=== PATIENT | female | born 1980 | race Caucasian/White ===

== ENCOUNTER 2017-11-12 07:17 | Day surgery (SDC) | payer BC ==
[~2017-11-12 07:17] MED LIST: ACETAMINOPHEN 1,000 MG/100 ML BTL IV ONE; CEFAZOLIN 2 Gram 2 GM/50 ML BAG IVPB ONE; FAMOTIDINE 20MG TABLET PO ONE; MECLIZINE 25 MG TABLET PO ONE; METOCLOPRAMIDE 10 MG TABLET PO ONE
[2017-11-12] MEDS ORDERED: HYDROMORPHONE HCL 2 MG/ML VIAL IV ONE ×2 (07:18)
[2017-11-12] MEDS ORDERED: ROCURONIUM BROMIDE 50MG/5ML VIAL IV ONE (07:18)
[2017-11-12] MEDS ORDERED: LIDOCAINE 1% W/EPI 1:200,000 MPF 30ML SQ ONE (07:18)
[2017-11-12] MEDS ORDERED: LIDOCAINE 2% MDV (20MG/ML) 20ML VIAL IV ONE (07:18)
[2017-11-12] MEDS ORDERED: MIDAZOLAM HCL 2MG/2ML VIAL IV ONE (07:18)
[2017-11-12] MEDS ORDERED: SCOPOLAMINE 1 PATCH TDSY TD ONE (07:18)
[2017-11-12] MEDS ORDERED: ONDANSETRON HCL IV 4 MG/2 ML VIAL IVP ONE (07:18)
[2017-11-12] MEDS ORDERED: PROPOFOL 10 MG/ML VIAL IV ONE (07:18)
[2017-11-12] MEDS ORDERED: KETOROLAC 30 MG/ML VIAL IVP ONE (07:18)
[2017-11-12] MEDS ORDERED: BUPIVACAINE 0.75% W/EPI MPF 30ML VIAL IVP ONE (07:18)
[2017-11-12] MEDS ORDERED: FENTANYL PF 0.25MG/5ML AMPUL IV ONE (07:18)
[2017-11-12] MEDS ORDERED: DEXAMETHASONE 4 MG/ML 1ML VIAL IVP ONE (07:18)
[2017-11-12] MEDS ORDERED: SEVOFLURANE 250 ML INH ONE (07:18)
[2017-11-12 07:52] LABS: HEMATOCRIT 34.3 % (35.0-47.0); HEMOGLOBIN 11.5 gm/dl (11.6-16.0)
[2017-11-12] MEDS ORDERED: HYDROCODONE/APAP 5/325MG TABLET PO PRN (11:32)
[2017-11-12] MEDS ORDERED: ONDANSETRON HCL IV 4 MG/2 ML VIAL IVP PRN (11:32)
[2017-11-12] MEDS ORDERED: DIPHENHYDRAMINE HCL IV 50 MG/ML VIAL IVP PRN ×2 (12:16→16:22)
[2017-11-12] MEDS: RINGERS SOLUTION,LACTATED 1,000 ML IV SCH (12:18)
[2017-11-12] MEDS: AMPHETAMINE SALTS 10 MG PO SCH (15:43)
[2017-11-12] MEDS: CEFAZOLIN 1 Gram 1 GM/50 ML BAG IVPB SCH (16:44)
[2017-11-12] MEDS: HYDROCODONE/APAP 5/325MG TABLET PO PRN ×3 (16:49→21:27)
[2017-11-12] MEDS: DIAZEPAM 5 MG TABLET PO PRN (16:50)
[2017-11-13] MEDS: RINGERS SOLUTION,LACTATED 1,000 ML IV SCH ×2 (00:08→08:48)
[2017-11-13] MEDS: CEFAZOLIN 1 Gram 1 GM/50 ML BAG IVPB SCH ×2 (00:09→07:50)
[2017-11-13] MEDS: HYDROCODONE/APAP 5/325MG TABLET PO PRN ×4 (00:30→10:05)
[2017-11-13] MEDS: DIAZEPAM 5 MG TABLET PO PRN ×2 (03:06→11:12)
[2017-11-13] MEDS: AMPHETAMINE SALTS 10 MG PO SCH (10:06)
--- NOTE | 2017-11-13 12:50 | Operative Note ---
DATE OF SURGERY: 11/12/2017 PREOPERATIVE DIAGNOSES: 1. Massive weight loss. 2. Chronic panniculitis. POSTOPERATIVE DIAGNOSES: 1. Massive weight loss. 2. Chronic panniculitis. OPERATION: [id number] abdominoplasty with plication. Surgeon: Casper Melgoza MD Anesthesia: General. ESTIMATED BLOOD LOSS: 100 mL DRAINS: A 15 round Herman. SPECIMENS: 2200 g total tissue. FINDINGS: Gastric sleeve pump was clearly identified and protected. At no point was any of the tubing or the valve exposed. PROCEDURE: The patient was interviewed preoperatively. The operative plan was reviewed. She was marked appropriately in the standing position. She was then taken to the operating room with PAS stockings. After induction of uncomplicated general anesthesia, all pressure points well padded, protected, we prepped and draped in the usual sterile manner. We circumscribed her umbilicus with a 15-blade leaving a well-vascularized stalk. We then incised along inferior border boundary down to but not through dermis, then used cautery and suture ligation for hemostasis. We dissected down to the fascia. We then raised the abdominal apron in a suprafascial plane leaving a layer of lymphatic subcu on the fascia to help reduce incidence of seroma. It should be noted that once we got past and around the umbilicus of the left upper quadrant of the abdomen, as expected her pump was clearly identified as was its tube. It was not exposed. We dissected above it to keep it intact very meticulously. Once we dissected up to the xiphoid, we then sat her up approximately 45-60 degrees and marked her for skin resection. We then excised the skin in the transverse section. With her still in a sitting position, we then marked a vertical ellipse. Upon completion of the excision, we then carefully plicated from the xiphoid to the pubic tubercle all the time being very cognizant of where the tube was and staying in a supramuscular fascial plane for the plication. Upon completion of the plication, we then placed subfascial 0.75% Xylocaine 20 mL. We then re-advanced the flaps with angella. We then tumesced her hips. We then defatted the suprapubic area. We then tumesced the remaining lateral [id number] area. We then put the first layer of sutures in with interrupted 3-0 Monocryl. We then aspirated her hips a total of about 300 mL of aspirate, 150 mL on each side including the suprapubic area, very careful not to devascularize the flaps. Upon completion of the liposuction, we then closed meticulously using interrupted in subcuticular with 3-0 Monocryl. We then brought out the umbilicus in its appropriate anatomic position at the midline and secured using Monocryl. We then took the local anesthetic for the drain. Sterile dressings were applied. No adhesive as applied. Upon completion of the operation, flaps showed no signs of any vascular compromise. She tolerated the procedure well without complication. ALLA
== END 2017-11-13 11:45 | disposition home or self-care (01) ==
LOC: SUR 07:17 → MEDSURG 12:12 → SUR 11-13 11:45
PROVIDERS: ATTEND Plastic Surgery
DX: E65 Localized adiposity (principal); R63.4 Abnormal weight loss
CPT/HCPCS: 85018; 85014; 15830; 15847; 00802; J3490 ×3; J1885; J2405; J0690 ×3; J1170; J1200; J7120

== ENCOUNTER 2017-11-23 18:01 | Observation (INO) | payer BC ==
--- NOTE | 2017-11-23 18:36 | Emergency Department Record ---
History of Present Illness - General Chief Complaint: Fever Stated Complaint: HIGH TEMPERATURE/WEAKNESS Time Seen by Provider: 11/23/17 18:35 Source: Patient Mode of Arrival: Ambulatory Limitations: No limitations - History of Present Illness Initial Comments: The patient is here due to not feeling well with a high fever for 24 hours. She did have a tummy tuck 11 days ago and was doing well until about 1 day ago when she noticed some drainage from her incision and drain site. She had been taking Keflex for 3 days and due to the increased drainage around her MIGUE drain site she did see her surgeon Dr. Melgoza yesterday. He pulled the drain and added Clindamycin to her home medicines. Today she was feeling worse with increased weakness and a temp at times over 102.0. She denies any ST, cough, AP, or dysuria. MD Complaint: Fever, Malaise, Weakness Onset/Timin -: Days(s) Maximum Temperature: 102.9 F Temperature Source: Oral Context: Other Associated Symptoms: Other Treatments Prior to Arrival: Other Treatment Prior to Arrival Comment:: Paulo 2 hours ago. - Related Data Home Medications Medication Instructions Recorded Confirmed Last Taken Cephalexin [Cephalexin] 500 mg PO QID 11/23/17 11/23/17 11/23/17 Clindamycin HCl [Clindamycin HCl] 150 mg PO TID 11/23/17 11/23/17 11/23/17 Diazepam [Diazepam] 10 mg PO TID 11/23/17 11/23/17 11/23/17 Hydrocodone/Acetaminophen 1 tab PO Q6H PRN 11/23/17 11/23/17 11/23/17 [Hydrocodone/Acetaminophen 5mg/325mg] Allergies Allergy/AdvReac Type Severity Reaction Status Date / Time adhesive Allergy BLISTERS Verified 11/23/17 18:23 levofloxacin [From Levaquin] Allergy ANAPHYLAXIS Verified 11/23/17 18:23 morphine Allergy ANAPHYLAXIS Verified 11/23/17 18:23 Travel Screening - Travel/Exposure Within Last 30 Days Have you traveled within the last 30 days?: No - Travel/Exposure Within Last Year Have you traveled outside the [place] in the last year?: No - Additonal Travel Details Have you been exposed to anyone with a communicable illness?: No - Travel Symptoms Symptom Screening: None Review of Systems Constitutional: Denies: Chills, Fever Eyes: Denies: Eye discharge ENT: Denies: Congestion Respiratory: Denies: Cough, Dyspnea Cardiovascular: Denies: Arrhythmia, Chest pain Past Medical History - SOCIAL HISTORY Smoking Status: Former smoker Alcohol Use: Rare Drug Use: None - RESPIRATORY Hx Respiratory Disorders: No - CARDIOVASCULAR Hx Cardio Disorders: Yes - NEURO Hx Neuro Disorders: Yes Comment:: ADHD controlled on Adderall - GI Hx GI Disorders: Yes Hx Celiac Disease: No (No celiac but gluten intoleratant-diarrhea) Comment:: Redundant skin on abdomen - Hx Genitourinary Disorders: Yes Comment:: Severe endometriosis - ENDOCRINE Hx Endocrine Disorders: No - MUSCULOSKELETAL Hx Musculoskeletal Disorders: No - PSYCH Hx Psych Problems: Yes Comment:: ADHD controlled with Adderall - HEMATOLOGY/ONCOLOGY Hx Hematology/Oncology Disorders: Yes Hx Anemia: Yes (borderline anemia) Hx Bruising: Yes (Bruises easily) Hx Blood Transfusions: Yes (At ) Hx Blood Transfusion Reaction: No Family Medical History Any Significant Family History?: Yes Hx Cancer: Grandparents *Cancer Comment: CLL Hx Depression: Mother *Depression Comment: bipolar with schizo Physical Exam - General General Appearance: Alert, Oriented x3, Cooperative, No acute distress - Head Head exam: Atraumatic, Normocephalic, Normal inspection - Eye Eye exam: Normal appearance, PERRL - Neck Neck exam: Normal inspection, Full ROM. negative: Tenderness - Respiratory Respiratory exam: Normal lung sounds bilaterally. negative: Respiratory distress - Cardiovascular Cardiovascular Exam: Regular rate, Normal rhythm, Normal heart sounds - GI/Abdominal GI/Abdominal exam: Soft, Normal bowel sounds, Other (The lower abdominal incision has mild to moderate erythema surrounding the lateral wound area with induration and warmth.). negative: Tenderness - Extremities Extremities exam: Normal inspection, Full ROM, Normal capillary refill. negative: Tenderness - Back Back exam: Reports: Normal inspection - Neurological Neurological exam: Alert, Normal gait. negative: Abnormal gait, Motor sensory deficit - Psychiatric Psychiatric exam: negative: Anxious, Depressed Course Vital Signs 11/23/17 18:27 Temperature 99.1 F Pulse Rate 107 H Respiratory 20 Rate Blood Pressure 94/79 Pulse Ox 96 - Reevaluation(s) Reevaluation #1: The patient is doing very well at this time. She is resting comfortably and feels much better. Her vital signs are normal and her temp improved. I did discuss the CT report with her and Dr. Melgoza and did recommend admission. Dr. Melgoza is willing to admit the patient here for further evaluation and will see the patient in the morning. 11/23/17 21:06 Medical Decision Making - Data Complexity MDM Data: Labs Ordered and/or Reviewed, X-Ray Ordered and/or Reviewed - Lab Data Result diagrams: 11/23/17 18:50 11/23/17 18:50 - Radiology Data Radiology results: Report reviewed (CT: Cellulitis and prob abscess L lower abdominal wall.) Disposition Disposition: Admit Clinical Impression: Cellulitis Qualifiers: Site of cellulitis: unspecified site Qualified Code(s): L03.90 - Cellulitis, unspecified Post op infection Qualifiers: Encounter type: initial encounter Qualified Code(s): T81.4XXA - Infection following a procedure, initial encounter Disposition: Still a Patient at [facility] Decision to Admit: Admit from ER Decision to Admit Date: 11/23/17 Decision to Admit Time: 21:07 Accepting Physician: Rhona Time Discussed w/Accepting Physician: 21:07 Condition: (2) Stable Time of Disposition: 21:07 Quality - Quality Measures Quality Measures: N/A - Blood Pressure Screening View Details: Yes Does Patient Have Any of the Following: No Blood Pressure Classification: Normal BP Reading Systolic Measurement: 94 Diastolic Measurement: 79 Screening for High Blood Pressure: < Normal BP, F/U Not Required > [[id number]]
[2017-11-23] MEDS ORDERED: 0.9 % SODIUM CHLORIDE 1,000 ML BAG IV ONE ×2 (18:43→20:30)
[2017-11-23 19:06] LABS: HEMATOCRIT 33.2 % (35.0-47.0); HEMOGLOBIN 10.9 gm/dl (11.6-16.0); MEAN CELL VOLUME 91.5 fl (81-97); MEAN CORPUSCULAR HGB CONC 32.8 g/dl (32-36); MEAN PLATELET VOLUME 9.1 fl (7.4-10.4); PLATELET COUNT 387 K/uL (130-400); RED BLOOD COUNT 3.63 M/uL (3.80-5.40); RED CELL DISTRIBUTION WIDTH 12.1 % (11.5-14.5)
[2017-11-23 19:10] LABS: URINE APPEARANCE CLEAR; URINE BILIRUBIN NEGATIVE (NEGATIVE); URINE BLOOD SMALL (NEGATIVE); URINE COLOR YELLOW; URINE GLUCOSE (UA) NEGATIVE (NEGATIVE); URINE KETONE NEGATIVE (NEGATIVE); URINE LEUKOCYTE ESTERASE NEGATIVE (NEGATIVE); URINE NITRITE NEGATIVE (NEGATIVE); URINE PROTEIN NEGATIVE (NEGATIVE); URINE UROBILINOGEN 0.2 E.U./dL (0.20 - 1.00)
[2017-11-23 19:17] LABS: BLOOD UREA NITROGEN 7 mg/dL (6-20); CREATININE 0.7 mg/dL (0.5-0.9); EST GLOMERULAR FILTRATION RATE > 60 mL/min
[2017-11-23 19:18] LABS: TOTAL PROTEIN 6.9 g/dL (6.6-8.7); URINE WBC 0 - 2 (0-2/hpf)
[2017-11-23 19:19] LABS: HCG,QUALITATIVE URINE NEGATIVE (NEGATIVE); URINE BACTERIA FEW
[2017-11-23 19:20] LABS: GLUCOSE,RANDOM 95 mg/dL (74-109)
[2017-11-23 19:22] LABS: ALBUMIN 3.5 g/dL (4.0-5.0); ALT/SGPT 36 U/L (<33); AST/SGOT 19 U/L (10.0-35.0)
[2017-11-23 19:23] LABS: ALKALINE PHOSPHATASE 78 U/L (35-104); C-REACTIVE PROTEIN 10.62 mg/dL (<0.5)
[2017-11-23] MEDS ORDERED: CEFTRIAXONE SODIUM 1 GM in 0.9 % SODIUM CHLORIDE 100ML 100 ML IVPB ONE (19:28)
[2017-11-23 19:31] LABS: LACTIC ACID 1.1 mmol/L (0.5-2.2)
[2017-11-23] MEDS ORDERED: CLINDAMYCIN 600MG/50ML PREMIX 600 MG/50 ML BAG IVPB ONE (20:56)
--- NOTE | 2017-11-23 20:58 | RADIOLOGY REPORT ---
EXAM: CHEST 2 VIEWS HISTORY: PATIENT HAS DRY COUGH AND FEVER. TECHNIQUE: Two views of the chest are provided without comparison studies. FINDINGS: Cardiomediastinal silhouette is within normal limits for size and contour. Eneida appear unremarkable. Linear subsegmental atelectasis is noted within the left lingular lobe. No pneumothorax is noted. No significant pleural effusions are identified. A lap band is identified in the region of the gastroesophageal junction. IMPRESSION: LINEAR SUBSEGMENTAL ATELECTASIS IS SUSPECTED WITHIN THE LEFT LINGULAR LOBE. NO PLEURAL EFFUSIONS ARE IDENTIFIED. FOLLOW-UP PA AND LATERAL VIEW OF THE CHEST CAN BE OBTAINED UNTIL RESOLUTION OF FINDINGS. JOB NUMBER: [id number] MTDD
--- NOTE | 2017-11-23 21:12 | CT SCAN REPORT ---
EXAM: CT SCAN ABDOMEN/PELVIS W CONTRAST HISTORY: PATIENT HAS A HISTORY OF A RECENT ABDOMINAL WALL SURGERY. TECHNIQUE: Serial axial CT scan of the abdomen and pelvis was performed at 3.75 mm intervals from the dome of the diaphragm down to the pubic symphysis following the intravenous administration of 100 mL of Omnipaque-300. COMPARISON: No comparison CTs are available. FINDINGS: Lung windows of the lung bases demonstrate linear subsegmental atelectasis at the lung bases. The visualized heart size and contour is within normal limits. The liver, spleen, pancreas, bilateral adrenal glands are unremarkable. Cholecystectomy clips are identified within the right upper quadrant of the abdomen. The bilateral kidneys demonstrate no CT evidence of hydronephrosis, hydroureter. No renal or ureteral calculi are noted. The contour, caliber, and flow within the abdominal aorta is within normal limits. There is no CT evidence for retroperitoneal, pelvic, or inguinal lymphadenopathy. The bowel gas pattern is nonspecific and nonobstructive. There is no CT evidence of free intraperitoneal fluid or free intraperitoneal air. There is a gastric lap band surrounding the region of the gastroesophageal junction. The inflation port is identified within the left anterior lower quadrant of the abdominal wall. Within the subcutaneous fat of the lower abdominal wall, there is an approximately 16 cm x 2.3 cm area of fluid, which extends into the right lateral and left lateral abdominal wall. Within the left lateral abdominal wall, there is an approximately 3.6 cm x 1.8 cm fluid collection, which shows punctate pockets of subcutaneous air. This finding may represent an abscess. If there is further clinical concern, then an ultrasound- guided aspiration can be obtained for further evaluation. The inflammatory process extends to the anterior abdominal wall surrounding fascia. This does not appear to extend into the deeper muscular layers or the intraabdominal space. These findings suggest cellulitis with subcutaneous abscess. The urinary bladder is unremarkable. The uterus is absent. Bone windows demonstrate no CT evidence of an osteolytic or osteoblastic process. IMPRESSION: POSTOPERATIVE CHANGES OF THE ABDOMEN ARE IDENTIFIED DISCUSSED ABOVE. THERE IS FAT STRANDING WITHIN THE ANTERIOR ABDOMINAL WALL SUBCUTANEOUS FAT WITH A FLUID COLLECTION WITHIN THE SUBCUTANEOUS FAT DISCUSSED ABOVE. THESE FINDINGS SUGGEST CELLULITIS WITH POSSIBLE ABSCESS IN THE ABDOMINAL WALL SUBCUTANEOUS FAT. IF THERE IS FURTHER CLINICAL CONCERN, THEN AN ULTRASOUND-GUIDED ASPIRATION OF THIS FLUID COLLECTION CAN BE OBTAINED FOR FURTHER EVALUATION. JOB NUMBER: [id number] [facility]
[2017-11-23] MEDS ORDERED: CLINDAMYCIN 600MG/50ML PREMIX 600 MG/50 ML BAG IVPB SCH (21:55)
[2017-11-23] MEDS ORDERED: CEFTRIAXONE SODIUM 1 GM in 0.9 % SODIUM CHLORIDE 100ML 100 ML IVPB SCH (21:55)
[2017-11-23] MEDS: DIAZEPAM 5 MG TABLET PO SCH (22:36)
[2017-11-23] MEDS: HYDROCODONE/APAP 5/325MG TABLET PO PRN (22:39)
[2017-11-24] MEDS ORDERED: CLINDAMYCIN 600MG/50ML PREMIX 600 MG/50 ML BAG IVPB SCH ×2 (06:00→14:00)
[2017-11-24] MEDS: DIAZEPAM 5 MG TABLET PO SCH ×3 (06:16→22:13)
[2017-11-24 07:35] LABS: HEMATOCRIT 31.1 % (35.0-47.0); HEMOGLOBIN 10.1 gm/dl (11.6-16.0); MEAN CELL VOLUME 92.3 fl (81-97); MEAN CORPUSCULAR HGB CONC 32.5 g/dl (32-36); MEAN PLATELET VOLUME 9.3 fl (7.4-10.4); PLATELET COUNT 316 K/uL (130-400); RED BLOOD COUNT 3.37 M/uL (3.80-5.40); RED CELL DISTRIBUTION WIDTH 12.2 % (11.5-14.5); WHITE BLOOD COUNT W/O DIFF 11.9 K/uL (4.2-12.2)
[2017-11-24 07:40] LABS: MEAN CORPUSCULAR HEMOGLOBIN 29.9 pg (27-33)
[2017-11-24 07:44] LABS: BLOOD UREA NITROGEN 7 mg/dL (6-20); CREATININE 0.5 mg/dL (0.5-0.9); EST GLOMERULAR FILTRATION RATE > 60 mL/min; GLUCOSE,RANDOM 92 mg/dL (74-109)
[2017-11-24] MEDS ORDERED: CEFTRIAXONE SODIUM 1 GM in 0.9 % SODIUM CHLORIDE 100ML 100 ML IVPB SCH (08:00)
[2017-11-24] MEDS ORDERED: SODIUM CHLORIDE 0.9% IVPB SCH ×2 (08:15→14:00)
[2017-11-24] MEDS ORDERED: CLINDAMYCIN IVPB SCH ×2 (08:15→14:00)
[2017-11-24] MEDS: HYDROCODONE/APAP 5/325MG TABLET PO PRN ×3 (09:05→23:49)
[2017-11-24] MEDS: 0.9 % SODIUM CHLORIDE 1000ML 1,000 ML IV PRN ×2 (09:07→19:22)
[2017-11-24] MEDS: PANTOPRAZOLE SODIUM IV 40 MG VIAL IV SCH (11:19)
[2017-11-24] MEDS: SODIUM CHLORIDE 0.9% IVPB SCH ×2 (13:21→22:11)
[2017-11-24] MEDS: CLINDAMYCIN IVPB SCH ×2 (13:21→22:11)
[2017-11-24] MEDS: CEFTRIAXONE SODIUM 1 GM in 0.9 % SODIUM CHLORIDE 100ML 100 ML IVPB SCH (21:00)
[2017-11-25] MEDS: CLINDAMYCIN IVPB SCH (06:12)
[2017-11-25] MEDS: SODIUM CHLORIDE 0.9% IVPB SCH (06:12)
[2017-11-25] MEDS: DIAZEPAM 5 MG TABLET PO SCH (06:12)
[2017-11-25] MEDS: 0.9 % SODIUM CHLORIDE 1000ML 1,000 ML IV PRN (06:15)
[2017-11-25] MEDS: PANTOPRAZOLE SODIUM IV 40 MG VIAL IV SCH (09:27)
[2017-11-25] MEDS: CEFTRIAXONE SODIUM 1 GM in 0.9 % SODIUM CHLORIDE 100ML 100 ML IVPB SCH (09:27)
[2017-11-25] MEDS ORDERED: POLYETHYLENE GLY 17 GM PACKET PO SCH (10:00)
[2017-11-25] MEDS: HYDROCODONE/APAP 5/325MG TABLET PO PRN (10:34)
== END 2017-11-25 11:29 | disposition home or self-care (01) ==
LOC: ER 18:01 → MEDSURG 21:40
PROVIDERS: ADMIT Internal Medicine; ATTEND Plastic Surgery
DX: T81.4XXA Infection following a procedure, initial encounter (principal); L03.311 Cellulitis of abdominal wall
CPT/HCPCS: 71020; 74177; 80048; 80053; 81001; 81025; 83605; 85027; 86140; 87070; 96365; 96366; 96368; 99285; C9113; J7030